=== PATIENT | female | born 1985 | race Hispanic/Latino ===

== ENCOUNTER 2019-03-18 | Emergency (ER) | payer SELFPAY ==
[2019-03-18 09:22] LABS: HEMATOCRIT 32.9 % (37.0-47.0); HEMOGLOBIN 9.7 g/dl (12.0-16.0); IMMATURE GRANULOCYTES 0.3 % (0.0-5.0); MEAN CELL VOLUME 75.5 fL CALC (80.0-100.0); MEAN CORPUSCULAR HGB 22.2 pG CALC (26.0-32.0); MEAN CORPUSCULAR HGB CONC 29.5 g/L CALC (32.0-36.0); NEUT# 4.18 thou/uL (2.00-7.15); RED BLOOD COUNT 4.36 mill/uL (4.20-5.60); RED CELL DISTRI WIDTH 19.7 % (11.5-15.5)
[2019-03-18 09:37] LABS: ANION GAP 13 (6-22 (CALC)); BUN 19 mg/dL (7-17); BUN/CREATININE RATIO 25 (12-20 (CALC)); CARBON DIOXIDE 24 mmol/l (22-30); CHLORIDE 104 mmol/l (95-108); CREATININE 0.7 mg/dL (0.5-1.0); GFR > 60 ML/MIN (>=60 (CALC)); GFR FOR AFR.AMER. > 60 ML/MIN (>=60 (CALC)); POTASSIUM 3.6 mmol/l (3.5-5.1); SODIUM 137 mmol/l (137-146)
[2019-03-18] MEDS ORDERED: FERROUS SULF325 M3 PO (10:16)
== END 2019-03-18 10:51 | disposition home or self-care (01) | DRG 313 ==
PROVIDERS: Family Medicine
DX: R07.9 Chest pain, unspecified (principal); D64.9 Anemia, unspecified

== ENCOUNTER 2021-10-27 20:09 | Emergency (ER) | payer SELFPAY ==
[~2021-10-27] VITALS: Ht 160 cm; Wt 50.0 kg
[~2021-10-27 20:09] MED LIST: FERROUS SULF325 M3 PO
[2021-10-27 21:00] LABS: HEMOGLOBIN 8.8 g/dl (12.0-16.0); IMMATURE GRANULOCYTES 0.1 % (0.0-5.0); MEAN CELL VOLUME 72.1 fL CALC (80.0-100.0); MEAN CORPUSCULAR HGB 21.9 pG CALC (26.0-32.0); MEAN CORPUSCULAR HGB CONC 30.3 g/dL CAL (32.0-36.0); NEUT# 6.85 thou/uL (2.00-7.15); RED BLOOD COUNT 4.02 mill/uL (4.20-5.60)
[2021-10-27 21:18] LABS: ALBUMIN 4.3 g/dL (3.2-5.0); ALKALINE PHOSPHATASE 73 u/l (38-126); ANION GAP 13 (6-22 (CALC)); BILIRUBIN, TOTAL 0.3 mg/dL (0.0-1.4); BUN 20 mg/dL (7-17); BUN/CREATININE RATIO 23 (12-20 (CALC)); CARBON DIOXIDE 22 mmol/l (22-30); CHLORIDE 108 mmol/l (95-108); CREATININE 0.9 mg/dL (0.5-1.0); GFR FOR AFR.AMER. > 60 ML/MIN (>=60 (CALC)); GFR OTHER RACES > 60 ML/MIN (>=60 (CALC)); LIPASE 122 u/l (23-300); POTASSIUM 3.5 mmol/l (3.5-5.1); SGOT/AST 22 u/l (14-36); SODIUM 139 mmol/l (137-146); TOTAL PROTEIN 7.9 g/dL (6.3-8.2)
[2021-10-27 22:14] LABS: URINE BILIRUBIN - DIPSTICK NEGATIVE (NEGATIVE); URINE BLOOD DIPSTICK MODERATE (NEGATIVE); URINE COLOR YELLOW; URINE GLUCOSE - DIPSTICK NEGATIVE (NEGATIVE); URINE KETONE 15 mg/dL (NEGATIVE); URINE PROTEIN - DIPSTICK NEGATIVE (NEG-TRACE); URINE SPECIFIC GRAVITY 1.015; URINE UROBILINOGEN - DIPSTICK 0.2 E.U./dL (0.2)
[2021-10-27 22:15] LABS: URINE LEUK ESTERASE MODERATE (NEGATIVE); URINE NITRITE - DIPSTICK POSITIVE (Negative)
[2021-10-27 22:25] LABS: URINE BACTERIA FEW hpf; URINE SQUAMOUS EPITHELIAL CELL FEW EPI/hpf (0-FEW)
[2021-10-27] MEDS ORDERED: BACTRIM DS1 TAB PO (22:34)
[2021-10-27 22:57] VITALS: BP 113/70
== END 2021-10-27 23:00 | disposition home or self-care (01) | DRG 690 ==
LOC: ED 20:09
PROVIDERS: Family Medicine
DX: N12 Tubulo-interstitial nephritis, not specified as acute or chronic (principal); B96.20 Unspecified Escherichia coli [E. coli] as the cause of diseases classified elsewhere

== ENCOUNTER 2022-01-09 19:56 | Emergency (ER) | payer SELFPAY ==
[~2022-01-09] VITALS: Ht 160 cm; Wt 59.9 kg
[~2022-01-09 19:56] MED LIST changes: +BACTRIM DS1 TAB PO
[2022-01-09] MEDS ORDERED: SILVADENE1 % EX (21:23)
[2022-01-09] MEDS ORDERED: GENTAMICIN SULF5 ML OU (21:23)
[2022-01-09 21:40] VITALS: BP 116/55
== END 2022-01-09 21:49 | disposition home or self-care (01) | DRG 935 ==
LOC: ED 19:56
DX: T20.19XA Burn of first degree of multiple sites of head, face, and neck, initial encounter (principal)